=== PATIENT | male | born 1955 | race Caucasian/White ===

== ENCOUNTER 2016-11-15 16:52 | Emergency (ER) | payer MEDICARE, BC ==
[2016-11-15 17:57] VITALS: BP 162/82
[2016-11-15] MEDS ORDERED: Sodium Chloride 0.9% 10 ML Syringe FLUSH PRN (18:05)
[2016-11-15] MEDS ORDERED: Vancomycin 1.5 GM in Sodium Chloride 0.9% 500 ML IV ONE (18:06)
[2016-11-15 18:42] LABS: CHLORIDE,CL 101 mmol/L (101-111); SODIUM,NA 137 mmol/L (135-145)
[2016-11-15] MEDS ORDERED: oxyCODONE 5 MG Tab PO ONE (19:12)
--- NOTE | 2016-11-17 16:15 | EDM.PDOC ---
Scribed by Shantel Rodriguez 11/15/16 1900 for Andrew Smith MD <Mike Wright - Last Filed: 11/15/16 20:16> ED HPI Trauma - General Chief Complaint: Lower Extremity Injury/Pain Stated Complaint: DIABETIC A CUT IN HIS FINGER [id number] Time Seen by Provider: 11/15/16 17:56 - History of Present Illness Allergies/ADRs: Allergies No Known Allergies Allergy (Verified 03/31/15 19:03) Home Medications: Ambulatory Orders Aspirin [[place] Aspirin] 81 mg PO DAILY 03/31/15 [Confirmed 11/16/16] Diazepam [Valium] 5 mg PO Q6HR PRN 03/31/15 [Confirmed 11/16/16] Gabapentin [Neurontin] 300 mg PO Q6HR 03/31/15 [Confirmed 11/16/16] Hydrocodone/Acetaminophen [Hydrocodon-Acetaminophen 5-325] 2 each PO Q4HR [Confirmed 11/16/16] Insulin Aspart [Novolog] 25 unit SQ ACBREAKFAST 03/31/15 [Confirmed 11/16/16] Magnesium 250 mg PO BID 03/31/15 [Confirmed 11/16/16] Metoprolol Succinate [Toprol XL] 6.5 mg PO BID 03/31/15 [Confirmed 11/16/16] Morphine Sulfate [Morphine Sulfate ER] 15 mg PO BID 03/31/15 [Confirmed 11/16/16 ] Multivitamin [Multivitamins] 1 each PO DAILY 03/31/15 [Confirmed 11/16/16] Mycophenolate Mofetil [Cellcept] 250 mg PO BID 03/31/15 [Confirmed 11/16/16] Nph, Human Insulin Isophane [HumuLIN N] 30 unit SUBCUT ACDINNER 03/31/15 [ Confirmed 11/16/16] Nph, Human Insulin Isophane [HumuLIN N] 40 unit SUBCUT ACBREAKFAST 03/31/15 [ Confirmed 11/16/16] Omeprazole [Prilosec] 20 mg PO DAILY 03/31/15 [Confirmed 11/16/16] Sertraline HCl 25 mg PO DAILY 03/31/15 [Confirmed 11/16/16] Simvastatin [Zocor] 10 mg PO DAILY 03/31/15 [Confirmed 11/16/16] Tacrolimus [Prograf] 0.5 mg PO QPM 03/31/15 [Confirmed 11/16/16] Tacrolimus [Prograf] 1 mg PO QAM 03/31/15 [Confirmed 11/16/16] oxyCODONE HCl/Acetaminophen [oxyCODONE-Acetaminophen 5-325] 2 tab PO Q4HR [Confirmed 11/16/16] predniSONE [Prednisone] 5 mg PO DAILY 03/31/15 [Confirmed 11/16/16] Course - Vital Signs Last Recorded V/S: Last Vital Signs Temp 36.4 C 11/15/16 17:56 Pulse 71 11/15/16 17:56 Resp 16 11/15/16 17:56 BP 162/82 H 11/15/16 17:56 Pulse Ox 96 11/15/16 17:56 - Orders/Labs/Meds Labs: Laboratory Tests 11/15/16 11/15/16 11/15/16 Range/Units 18:10 18:10 18:10 WBC 7.2 (5.0-10.0) 10^3/uL RBC 5.08 (4.6-6.2) 10^6/uL Hgb 14.4 (14.0-18.0) g/dL Hct 43.9 (40.0-54.0) % MCV 86.4 (80-100) fL MCH 28.3 (27.0-34.0) pg MCHC 32.8 L (33.0-35.0) g/dL Plt Count 206 (150-450) 10^3/uL Neut % (Auto) 73.5 (42.2-75.2) % Lymph % (Auto) 11.9 L (20.5-50.1) % [place] % (Auto) 13.0 H (2-8) % Eos % (Auto) 1.5 (1.0-3.0) % Baso % (Auto) 0.1 (0.0-1.0) % Sodium 137 (135-145) mmol/L Potassium 4.0 (3.6-5.0) mmol/L Chloride 101 (101-111) mmol/L Carbon Dioxide 28.0 (21.0-31.0) mmol/L Anion Gap 12.0 BUN 19 H (7-18) mg/dL Creatinine 1.2 (0.6-1.3) mg/dL Est Cr Clr Drug Dosing 70.59 mL/min Estimated GFR (MDRD) > 60 BUN/Creatinine Ratio 15.83 Glucose 198 H (74-105) mg/dL Lactic Acid 2.3 H (0.5-2.2) mmol/L Calcium 9.0 (8.4-10.2) mg/dl Total Bilirubin 0.4 (0.2-1.0) mg/dL AST 23 (10-42) IU/L ALT 18 (10-60) IU/L Alkaline Phosphatase 60 (42-121) IU/L Total Protein 7.3 (6.7-8.2) g/dl Albumin 3.7 (3.2-5.5) g/dl Globulin 3.6 Albumin/Globulin Ratio 1.03 Meds: Medications Discontinued Medications Generic Name Dose Route Start Last Admin Trade Name Freq PRN Reason Stop Dose Admin Vancomycin HCl 1.5 gm/ Sodium 500 mls @ 334 mls/hr 11/15/16 18:06 11/15/16 18 :56 Chloride IV 11/15/16 19:35 334 mls/hr ONETIME ONE Administration Oxycodone HCl 5 mg 11/15/16 19:12 11/15/16 19:25 Oxycodone PO 11/15/16 19:13 5 mg ONETIME ONE Administration Sodium Chloride 10 ml 11/15/16 18:05 Saline Flush FLUSH ASDIRECTED PRN Keep Vein Open - Re-Assessments/Exams Free Text/Narrative Re-Assessment/Exam: 11/15/16 20:09 Discussed the examination, history, lab and x-ray results with Dr. Partida ( Podiatry with [facility]). Dr. Partida advised to have the patient remain non-weight bearing on the right foot. Return for a follow-up visit in the ED tomorrow with a possible second dose of Vanco. Then, the patient may be continued on oral antibiotics and follow-up with podiatry early next week. Departure - Departure Time of Disposition: 20:11 Disposition: Home, Self-Care 01 Condition: fair Clinical Impression: Cellulitis of great toe, right Instructions: Cellulitis, Adult, [id number] Referrals: PCP,None [Primary Care Provider] - Forms: ED Department Discharge Care Plan Goals: The patient was advised of the examination, x-ray and consult (with Dr. Partida ) results during the visit. The patient was placed in a protective boot for his right foot and advised to remain non-weight bearing on his right foot. The patient should return for a follow-up in the morning. If the patient looks worse , the patient should be given additional antibiotics and transferred to [place] in [place]. If the patient looks better, the patient may continue on oral antibiotics and follow-up with podiatry early next week. <Andrew Smith - Last Filed: 11/17/16 16:15> ED HPI Trauma - General Source: Reports: Patient, RN, RN notes reviewed History Limitations: Reports: No limitations - History of Present Illness INITIAL COMMENTS - FREE TEXT/NARRATIVE: Complaining of onset of right 1st toe becoming red yesterday with a sore on the very end. Today the toe has mild swelling with redness and some purplish color. Admits to small amount of drainage. Patient does not have pain, but has severe peripheral neuropathy. Patient also developed a cough yesterday and temperature of 100.2F last night. Symptom Onset Date: 11/14/16 Severity: severe Pain/Injury Location: Reports: lower extremity, right Past Medical History HEENT History: Reports: Impaired vision Cardiovascular History: Reports: CAD Genitourinary History: Reports: Chronic renal insuffiency, Renal disease Other Genitourinary History: kidney transplant Musculoskeletal History: Reports: Amputation, Arthritis, Osteoarthritis, Other ( see below) Other Musculoskeletal History: amputation of several digits Neurological History: Reports: Neuropathy, peripheral Endocrine/Metabolic History: Reports: Diabetes, type II, Hyperparathyroidism, IDDM, Obesity/BMI 30+ Other Endocrine/Metabolic History: kidney transplant 5 years ago. - Past Surgical History Cardiovascular Surgical History: Reports: Coronary artery bypass GI Surgical History: Reports: Cholecystectomy, Hernia repair/other Other Male Surgeries/Procedures: kidney transplant Endocrine Surgical History: Reports: Parathyroidectomy Other Neurological Surgeries/Procedures: known nerve impingement Other Musculoskeletal Surgeries/Procedures:: back surgery with hernirated disks Social & Family History - Family History Family Medical History: Noncontributory - Tobacco Use Smoking Status *Q: Never Smoker Second Hand Smoke Exposure: No - Caffeine Use Caffeine Use: Reports: Coffee, Soda, Tea - Alcohol Use Days Per Week of Alcohol Use: 0 - Recreational Drug Use Recreational Drug Use: No - Living Situation & Occupation Living situation: Reports: , with spouse Occupation: disabled Review of Systems - Review of Systems Review Of Systems: ROS reveals no pertinent complaints other than HPI. Trauma Exam - Physical Exam Exam: See Below Exam Limited By: No limitations General Appearance: Reports: obese, other (chronically ill appaering) Head: Reports: atraumatic, normocephalic Eyes: bilateral eye: normal inspection Ears: Reports: normal external exam, normal canal, hearing grossly normal, normal TMs Nose: Reports: normal inspection, normal mucousa, no blood Throat/Mouth: Reports: Normal inspection, Normal lips, Normal teeth, Normal gums , Normal oropharynx, Normal voice, No airway compromise Neck: Reports: non-tender, full range of motion, normal alignment, normal inspection Respiratory Exam: Reports: other (decreased sounds bilateral bases. Faint bibasilar rales. ) Cardiovascular: Reports: normal peripheral pulses, regular rate, rhythm, no edema, no gallop, no JVD, no murmur, no rub Back: Reports: full range of motion, normal inspection, non-tender Extremities: Reports: other (right 1st toe with 1cm unstageable ulcer with surrounding erythema to distal medial forefoot, no drainage. ) Neurologic: Reports: other (chronic/stable bilateral lower extremity neuropathy. ) Course - Orders/Labs/Meds Labs: Laboratory Tests 11/15/16 11/15/16 11/15/16 Range/Units 18:10 18:10 18:10 WBC 7.2 (5.0-10.0) 10^3/uL RBC 5.08 (4.6-6.2) 10^6/uL Hgb 14.4 (14.0-18.0) g/dL Hct 43.9 (40.0-54.0) % MCV 86.4 (80-100) fL MCH 28.3 (27.0-34.0) pg MCHC 32.8 L (33.0-35.0) g/dL Plt Count 206 (150-450) 10^3/uL Neut % (Auto) 73.5 (42.2-75.2) % Lymph % (Auto) 11.9 L (20.5-50.1) % [place] % (Auto) 13.0 H (2-8) % Eos % (Auto) 1.5 (1.0-3.0) % Baso % (Auto) 0.1 (0.0-1.0) % Sodium 137 (135-145) mmol/L Potassium 4.0 (3.6-5.0) mmol/L Chloride 101 (101-111) mmol/L Carbon Dioxide 28.0 (21.0-31.0) mmol/L Anion Gap 12.0 BUN 19 H (7-18) mg/dL Creatinine 1.2 (0.6-1.3) mg/dL Est Cr Clr Drug Dosing 70.59 mL/min Estimated GFR (MDRD) > 60 BUN/Creatinine Ratio 15.83 Glucose 198 H (74-105) mg/dL Lactic Acid 2.3 H (0.5-2.2) mmol/L Calcium 9.0 (8.4-10.2) mg/dl Total Bilirubin 0.4 (0.2-1.0) mg/dL AST 23 (10-42) IU/L ALT 18 (10-60) IU/L Alkaline Phosphatase 60 (42-121) IU/L Total Protein 7.3 (6.7-8.2) g/dl Albumin 3.7 (3.2-5.5) g/dl Globulin 3.6 Albumin/Globulin Ratio 1.03 - Radiology Interpretation Free Text/Narrative:: Chset x-ray: no acute cardiopulmonary process. No incidental/non-acute findings are described above per rad report. I have read and agree with the documentation that has been completed regarding this visit. By signing this record, I attest that the documentation was completed in my physical presence and is an accurate record of the encounter.
== END 2016-11-15 20:30 | disposition home or self-care (01) ==
LOC: DL.ED 16:52
DX: L03.031 Cellulitis of right toe (principal); I25.810 Atherosclerosis of coronary artery bypass graft(s) without angina pectoris; E11.621 Type 2 diabetes mellitus with foot ulcer; L97.519 Non-pressure chronic ulcer of other part of right foot with unspecified severity; M19.90 Unspecified osteoarthritis, unspecified site; E66.9 Obesity, unspecified; Z90.49 Acquired absence of other specified parts of digestive tract
CPT/HCPCS: 36415; 71020; 80053; 83605; 85025; 87040; 99284; A9270; J3370; J7040

== ENCOUNTER 2016-11-16 08:42 | Emergency (ER) | payer MEDICARE, BC ==
[2016-11-16] MEDS ORDERED: Bacitracin Oint 1 GM U/D Packet TOP ONE (08:56)
--- NOTE | 2016-11-16 08:56 | EDM.PDOC ---
ED HPI Skin/Rash - General Chief Complaint: Wound Recheck Stated Complaint: RT BIG TOE Time Seen by Provider: 11/16/16 08:53 Source: Reports: Patient, RN History Limitations: Reports: No limitations - History of Present Illness INITIAL COMMENTS - FREE TEXT/NARRATIVE: Pt from [facility] for the weekend presents for recheck of his Rt 1st toe ulcer and cellulitis. Pt states the redness and pain have improved some since the dose of Vancomycin 1.5g IV yesterday. Denies fever, chills, or any new symptoms. 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 medication(s) - Related Data Allergies Allergy/AdvReac Type Severity Reaction Status Date / Time No Known Allergies Allergy Verified 03/31/15 19:03 Home Meds: Ambulatory Orders Medication Instructions Recorded Confirmed Aspirin [[place] Aspirin] 81 mg PO DAILY 03/31/15 11/16/16 Diazepam [Valium] 5 mg PO Q6HR PRN 03/31/15 11/16/16 Gabapentin [Neurontin] 300 mg PO Q6HR 03/31/15 11/16/16 Hydrocodone/Acetaminophen 2 each PO Q4HR 03/31/15 11/16/16 [Hydrocodon-Acetaminophen 5-325] Insulin Aspart [Novolog] 25 unit SQ ACBREAKFAST 03/31/15 11/16/16 Magnesium 250 mg PO BID 03/31/15 11/16/16 Metoprolol Succinate [Toprol XL] 6.5 mg PO BID 03/31/15 11/16/16 Morphine Sulfate [Morphine Sulfate 15 mg PO BID 03/31/15 11/16/16 ER] Multivitamin [Multivitamins] 1 each PO DAILY 03/31/15 11/16/16 Mycophenolate Mofetil [Cellcept] 250 mg PO BID 03/31/15 11/16/16 Nph, Human Insulin Isophane 30 unit SUBCUT ACDINNER 03/31/15 11/16/16 [HumuLIN N] Nph, Human Insulin Isophane 40 unit SUBCUT ACBREAKFAST 03/31/15 11/16/16 [HumuLIN N] Omeprazole [Prilosec] 20 mg PO DAILY 03/31/15 11/16/16 Sertraline HCl 25 mg PO DAILY 03/31/15 11/16/16 Simvastatin [Zocor] 10 mg PO DAILY 03/31/15 11/16/16 Tacrolimus [Prograf] 0.5 mg PO QPM 03/31/15 11/16/16 Tacrolimus [Prograf] 1 mg PO QAM 03/31/15 11/16/16 oxyCODONE HCl/Acetaminophen 2 tab PO Q4HR 03/31/15 11/16/16 [oxyCODONE-Acetaminophen 5-325] predniSONE [Prednisone] 5 mg PO DAILY 03/31/15 11/16/16 Past Medical History HEENT History: Reports: Impaired vision Cardiovascular History: Reports: CAD Genitourinary History: Reports: Chronic renal insuffiency, Renal disease Other Genitourinary History: kidney transplant Musculoskeletal History: Reports: Amputation, Arthritis, Osteoarthritis, Other ( see below) Other Musculoskeletal History: amputation of several digits Neurological History: Reports: Neuropathy, peripheral Endocrine/Metabolic History: Reports: Diabetes, type II, Hyperparathyroidism, IDDM, Obesity/BMI 30+ Other Endocrine/Metabolic History: kidney transplant 5 years ago. - Past Surgical History Cardiovascular Surgical History: Reports: Coronary artery bypass GI Surgical History: Reports: Cholecystectomy, Hernia repair/other Other Male Surgeries/Procedures: kidney transplant Endocrine Surgical History: Reports: Parathyroidectomy Other Neurological Surgeries/Procedures: known nerve impingement Other Musculoskeletal Surgeries/Procedures:: back surgery with hernirated disks Social & Family History - Family History Family Medical History: Noncontributory - Tobacco Use Smoking Status *Q: Never Smoker Second Hand Smoke Exposure: No - Caffeine Use Caffeine Use: Reports: Coffee, Soda, Tea - Alcohol Use Days Per Week of Alcohol Use: 0 - Recreational Drug Use Recreational Drug Use: No - Living Situation & Occupation Living situation: Reports: , with spouse Occupation: disabled ED ROS GENERAL - Review of Systems Review Of Systems: ROS reveals no pertinent complaints other than HPI. ED EXAM, SKIN/RASH Exam: See Below Exam Limited By: No limitations General Appearance: alert, no apparent distress, obese, other (chronically appearing) Throat/Mouth: Normal voice Head: atraumatic, normocephalic Neck: normal inspection Respiratory/Chest: no respiratory distress, lungs clear, normal breath sounds, no accessory muscle use, chest non-tender Cardiovascular: regular rate, rhythm Extremities: other (Rt first toe with distal unstagable ulcer unchanged, erythema is decreased, toe is less tender than it was yesterday) Neurological: alert, oriented Psychiatric: normal mood Course - Vital Signs Last Recorded V/S: Last Vital Signs Temp 36.0 C 11/16/16 08:59 Pulse 63 11/16/16 08:59 Resp 18 11/16/16 08:59 BP 133/90 11/16/16 08:59 Pulse Ox 96 11/16/16 08:59 - Orders/Labs/Meds Orders: Active Orders 24 hr Category Date Time Status Peripheral IV Care [RC] . DIRECTED Care 11/16/16 08:57 Active Peripheral IV Insertion Adult [OM.PC] Stat Oth 11/16/16 08:57 Ordered Labs: Laboratory Tests 11/16/16 11/16/16 Range/Units 09:04 09:04 WBC 5.1 (5.0-10.0) 10^3/uL RBC 4.88 (4.6-6.2) 10^6/uL Hgb 14.1 (14.0-18.0) g/dL Hct 42.5 (40.0-54.0) % MCV 87.1 (80-100) fL MCH 28.9 (27.0-34.0) pg MCHC 33.2 (33.0-35.0) g/dL Plt Count 206 (150-450) 10^3/uL Neut % (Auto) 65.9 (42.2-75.2) % Lymph % (Auto) 16.2 L (20.5-50.1) % [place] % (Auto) 14.8 H (2-8) % Eos % (Auto) 2.7 (1.0-3.0) % Baso % (Auto) 0.4 (0.0-1.0) % Sodium 136 (135-145) mmol/L Potassium 3.8 (3.6-5.0) mmol/L Chloride 102 (101-111) mmol/L Carbon Dioxide 26.0 (21.0-31.0) mmol/L Anion Gap 11.8 BUN 17 (7-18) mg/dL Creatinine 1.1 (0.6-1.3) mg/dL Est Cr Clr Drug Dosing 76.70 mL/min Estimated GFR (MDRD) > 60 Glucose 263 H (74-105) mg/dL Calcium 8.4 (8.4-10.2) mg/dl Meds: Medications Discontinued Medications Generic Name Dose Route Start Last Admin Trade Name Apple PRN Reason Stop Dose Admin Hydrocodone Bitart/Acetaminophen 1 tab 11/16/16 08:58 11/16/16 09:21 [place] 325-10 Mg PO 11/16/16 08:59 1 tab ONETIME ONE Administration Bacitracin 1 dose 11/16/16 08:56 11/16/16 09:22 Bacitracin Oint 1 Gm TOP 11/16/16 08:57 1 dose ONETIME ONE Administration Vancomycin HCl 1.5 gm/ Sodium 500 mls @ 334 mls/hr 11/16/16 08:59 11/16/16 09 :22 Chloride IV 11/16/16 10:28 334 mls/hr ONETIME ONE Administration Sodium Chloride 10 ml 11/16/16 08:57 11/16/16 09:22 Saline Flush FLUSH 10 ml ASDIRECTED PRN Administration Keep Vein Open Departure - Departure Time of Disposition: 10:36 Disposition: Home, Self-Care 01 Condition: fair Clinical Impression: Cellulitis of great toe, right Instructions: Wound Infection, [id number], Cellulitis, Adult, [id number]du[place] Referrals: PCP,Not In Area [Primary Care Provider] - Forms: ED Department Discharge Additional Instructions: Rx: Clindamycin 300mg Rx: Cipro 500mg Take Coricidin HBP Cough/Cold, follow directions on package. 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 - My Orders Last 24 Hours: My Active Orders 11/16/16 08:57 Peripheral IV Care [RC] . DIRECTED Peripheral IV Insertion Adult [OM.PC] Stat - Assessment/Plan Last 24 Hours: My Active Orders 11/16/16 08:57 Peripheral IV Care [RC] . DIRECTED Peripheral IV Insertion Adult [OM.PC] Stat
[2016-11-16] MEDS ORDERED: Sodium Chloride 0.9% 10 ML Syringe FLUSH PRN (08:57)
[2016-11-16] MEDS ORDERED: Acetaminophen/HYDROcodone 325-10 MG Tab PO ONE (08:58)
[2016-11-16] MEDS ORDERED: Vancomycin 1.5 GM in Sodium Chloride 0.9% 500 ML IV ONE (08:59)
[2016-11-16 09:07] VITALS: BP 133/90
[2016-11-16 09:33] LABS: CHLORIDE,CL 102 mmol/L (101-111); SODIUM,NA 136 mmol/L (135-145)
== END 2016-11-16 11:12 | disposition home or self-care (01) ==
LOC: DL.ED 08:42
DX: L03.031 Cellulitis of right toe (principal); I25.810 Atherosclerosis of coronary artery bypass graft(s) without angina pectoris; E11.22 Type 2 diabetes mellitus with diabetic chronic kidney disease; N18.9 Chronic kidney disease, unspecified; E11.622 Type 2 diabetes mellitus with other skin ulcer; L97.519 Non-pressure chronic ulcer of other part of right foot with unspecified severity; Z94.0 Kidney transplant status; M19.90 Unspecified osteoarthritis, unspecified site; E66.9 Obesity, unspecified; Z90.49 Acquired absence of other specified parts of digestive tract; Z79.82 Long term (current) use of aspirin; Z79.899 Other long term (current) drug therapy
CPT/HCPCS: 36415; 80048; 85025; 96365; 96366; 99284; A9270; J3370; J7040; J7050

== ENCOUNTER 2016-12-21 18:34 | Emergency (ER) | payer MEDICARE, BC ==
[2016-12-21 19:02] VITALS: BP 163/91
[2016-12-21] MEDS ORDERED: HYDROmorphone 1 MG/ML Syringe IVPUSH ONE (19:06)
--- NOTE | 2016-12-21 19:12 | EDM.PDOC ---
ED HPI GENERAL MEDICAL PROBLEM - General Chief Complaint: Lower Extremity Injury/Pain Stated Complaint: SORE ON FOOT/PAIN RADIATING DOWN LEG Time Seen by Provider: 12/21/16 18:57 Source of Information: Reports: Patient History Limitations: Reports: No Limitations - History of Present Illness INITIAL COMMENTS - FREE TEXT/NARRATIVE: This 61 yo male patient reports to the ED with swelling of his right foot, an ulcer on his right great toe and shooting pain from his lower back to his foot. The patient reports he has had numerous back surgeries. The patient has been working with podiatry over the past couple of weeks for his toe. The patient is a diabetic and has had a kidney transplant in the past. 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: Other Medication(s) Right Lower Leg Pain Score (Numeric/FACES): 8 - Related Data Allergies Allergy/AdvReac Type Severity Reaction Status Date / Time No Known Allergies Allergy Verified 03/31/15 19:03 Home Meds: Home Meds Aspirin [[place] Aspirin] 81 mg PO DAILY 03/31/15 [History] Diazepam [Valium] 5 mg PO Q6HR PRN 03/31/15 [History] Gabapentin [Neurontin] 300 mg PO Q6HR 03/31/15 [History] Hydrocodone/Acetaminophen [Hydrocodon-Acetaminophen 5-325] 2 each PO Q4HR [History] Insulin Aspart [Novolog] 25 unit SQ ACBREAKFAST 03/31/15 [History] Magnesium 250 mg PO BID 03/31/15 [History] Metoprolol Succinate [Toprol XL] 6.5 mg PO BID 03/31/15 [History] Morphine Sulfate [Morphine Sulfate ER] 15 mg PO BID 03/31/15 [History] Multivitamin [Multivitamins] 1 each PO DAILY 03/31/15 [History] Mycophenolate Mofetil [Cellcept] 250 mg PO BID 03/31/15 [History] Nph, Human Insulin Isophane [HumuLIN N] 30 unit SUBCUT ACDINNER 03/31/15 [ History] Nph, Human Insulin Isophane [HumuLIN N] 40 unit SUBCUT ACBREAKFAST 03/31/15 [ History] Omeprazole [Prilosec] 20 mg PO DAILY 03/31/15 [History] Sertraline HCl 25 mg PO DAILY 03/31/15 [History] Simvastatin [Zocor] 10 mg PO DAILY 03/31/15 [History] Tacrolimus [Prograf] 0.5 mg PO QPM 03/31/15 [History] Tacrolimus [Prograf] 1 mg PO QAM 03/31/15 [History] oxyCODONE HCl/Acetaminophen [oxyCODONE-Acetaminophen 5-325] 2 tab PO Q4HR [History] predniSONE [Prednisone] 5 mg PO DAILY 03/31/15 [History] Cephalexin 500 mg PO BID 12/21/16 [History] Past Medical History HEENT History: Reports: Impaired Vision Cardiovascular History: Reports: CAD Genitourinary History: Reports: Chronic Renal Insuffiency, Renal Disease Other Genitourinary History: kidney transplant Musculoskeletal History: Reports: Amputation, Arthritis, Osteoarthritis, Other ( See Below) Other Musculoskeletal History: amputation of several digits Neurological History: Reports: Neuropathy, Peripheral Endocrine/Metabolic History: Reports: Diabetes, Type II, Hyperparathyroidism, IDDM, Obesity/BMI 30+ Other Endocrine/Metabolic History: kidney transplant 5 years ago. - Past Surgical History Cardiovascular Surgical History: Reports: Coronary Artery Bypass GI Surgical History: Reports: Cholecystectomy, Hernia Repair/Other Male Surgical History: Reports: Other (See Below) Other Male Surgeries/Procedures: kidney transplan, hx of dialysis prior Social & Family History - Family History Family Medical History: Noncontributory - Tobacco Use Smoking Status *Q: Never Smoker Second Hand Smoke Exposure: No - Caffeine Use Caffeine Use: Reports: Coffee, Soda, Tea - Alcohol Use Days Per Week of Alcohol Use: 0 - Recreational Drug Use Recreational Drug Use: No - Living Situation & Occupation Living situation: Reports: , with Spouse Occupation: Disabled Review of Systems - Review of Systems Review Of Systems: ROS reveals no pertinent complaints other than HPI. ED EXAM, GENERAL - Physical Exam Exam: See Below Exam Limited By: No Limitations General Appearance: Alert, WD/WN, Moderate Distress Eye Exam: Bilateral Eye: EOMI, Normal Inspection, PERRL Ears: Normal External Exam, Normal Canal, Hearing Grossly Normal, Normal TMs Nose: Normal Inspection, Normal Mucosa, No Blood Throat/Mouth: Normal Inspection, Normal Lips, Normal Teeth, Normal Gums, Normal Oropharynx, Normal Voice, No Airway Compromise Head: Atraumatic, Normocephalic Neck: Normal Inspection, Supple, Non-Tender, Full Range of Motion Respiratory/Chest: No Respiratory Distress, Lungs Clear, Normal Breath Sounds, No Accessory Muscle Use, Chest Non-Tender Cardiovascular: Normal Peripheral Pulses, Regular Rate, Rhythm, No Edema, No Gallop, No JVD, No Murmur, No Rub GI/Abdominal: Normal Bowel Sounds, Soft, Non-Tender, No Organomegaly, No Distention, No Abnormal Bruit, No Mass, Other (obese) (Male) Exam: Deferred Rectal (Males) Exam: Deferred Back Exam: Decreased Range of Motion (previous lower back surgeries) Extremities: Pedal Edema (right), Leg Pain (radiating pain down right leg) Neurological: Alert, Oriented, CN II-XII Intact, Normal Cognition, Normal Gait, Normal Reflexes, No Motor/Sensory Deficits Psychiatric: Normal Affect, Depressed Mood Skin Exam: Warm, Dry, Intact, Normal Color, No Rash Lymphatic: No Adenopathy Course - Vital Signs Last Recorded V/S: Last Vital Signs Temp 36.6 C 12/21/16 18:40 Pulse 76 12/21/16 18:40 Resp 18 12/21/16 18:40 BP 163/91 H 12/21/16 18:40 Pulse Ox 94 L 12/21/16 18:40 - Orders/Labs/Meds Labs: Laboratory Tests 12/21/16 12/21/16 Range/Units 19:20 19:20 WBC 9.5 (5.0-10.0) 10^3/uL RBC 4.93 (4.6-6.2) 10^6/uL Hgb 13.8 L (14.0-18.0) g/dL Hct 41.8 (40.0-54.0) % MCV 84.8 (80-100) fL MCH 28.0 (27.0-34.0) pg MCHC 33.0 (33.0-35.0) g/dL Plt Count 231 (150-450) 10^3/uL Neut % (Auto) 84.4 H (42.2-75.2) % Lymph % (Auto) 7.1 L (20.5-50.1) % [place] % (Auto) 7.9 (2-8) % Eos % (Auto) 0.5 L (1.0-3.0) % Baso % (Auto) 0.1 (0.0-1.0) % Sodium 137 (135-145) mmol/L Potassium 4.2 (3.6-5.0) mmol/L Chloride 100 L (101-111) mmol/L Carbon Dioxide 27.0 (21.0-31.0) mmol/L Anion Gap 14.2 BUN 17 (7-18) mg/dL Creatinine 0.9 (0.6-1.3) mg/dL Est Cr Clr Drug Dosing TNP Estimated GFR (MDRD) > 60 BUN/Creatinine Ratio 18.88 Glucose 244 H (74-105) mg/dL Calcium 8.9 (8.4-10.2) mg/dl Total Bilirubin 0.4 (0.2-1.0) mg/dL AST 15 (10-42) IU/L ALT 14 (10-60) IU/L Alkaline Phosphatase 65 (42-121) IU/L Total Protein 7.3 (6.7-8.2) g/dl Albumin 3.4 (3.2-5.5) g/dl Globulin 3.9 Albumin/Globulin Ratio 0.87 Meds: Medications Discontinued Medications Generic Name Dose Route Start Last Admin Trade Name Blairq PRN Reason Stop Dose Admin Hydromorphone HCl 1 mg 12/21/16 19:06 12/21/16 19:32 Dilaudid IVPUSH 12/21/16 19:07 1 mg ONETIME ONE Administration Departure - Departure Time of Disposition: 20:25 Disposition: Home, Self-Care 01 Condition: fair Clinical Impression: Sciatica, right side, Edema of right lower extremity - Discharge Information Instructions: Sciatica, [id number] Forms: ED Department Discharge Care Plan Goals: The patient and spouse were advised of the examination and lab results during the visit. The patient was given a dose of IV Dilaudid while in the ED. The patient was discharged with a dose of Flexeril (10 mg) to take at bedtime. The patient should rest, ice and elevate his right foot. The patient was encouraged to avoid trauma to his foot/toe. If the patient has any additional symptoms or concerns, the patient should follow-up with his primary care facility or return to the emergency department.
[2016-12-21 19:51] LABS: CHLORIDE,CL 100 mmol/L (101-111); SODIUM,NA 137 mmol/L (135-145)
[2016-12-21] MEDS ORDERED: Cyclobenzaprine 10 MG Tab ONE (20:28)
== END 2016-12-21 20:41 | disposition home or self-care (01) ==
LOC: DL.ED 18:34
DX: M54.31 Sciatica, right side (principal); R60.0 Localized edema; N18.9 Chronic kidney disease, unspecified; I25.10 Atherosclerotic heart disease of native coronary artery without angina pectoris; E11.9 Type 2 diabetes mellitus without complications; Z79.82 Long term (current) use of aspirin; Z79.899 Other long term (current) drug therapy
CPT/HCPCS: 36415; 80053; 85025; 96374; 99283; A9270; J1170; 99284

== ENCOUNTER 2018-01-03 19:16 | Emergency (ER) | payer MEDICARE, BC ==
[2018-01-03] MEDS ORDERED: Ketorolac 30 MG/ML SDV IM ONE (19:37)
--- NOTE | 2018-01-03 19:43 | EDM.PDOC ---
ED HPI GENERAL MEDICAL PROBLEM - General Chief Complaint: Back Pain or Injury Stated Complaint: back pain [id number] Time Seen by Provider: 01/03/18 19:37 Source of Information: Reports: Patient History Limitations: Reports: No Limitations - History of Present Illness INITIAL COMMENTS - FREE TEXT/NARRATIVE: tripped fell onto right shoulder last night got back up with help, all day been having spasm pain right side of lower neck/shoulder area. gives h/o steroid injection into neck. states no problem moving shoulder or neck but feels uncomfortable hard to lay in any position. denies paraes/[aresis to arms/legs. give h/o LBP also. taking Rx for his pains. Neck Pain Score (Numeric/FACES): 9 - Related Data Allergies Allergy/AdvReac Type Severity Reaction Status Date / Time No Known Allergies Allergy Verified 03/31/15 19:03 Home Meds: Home Meds Hydrocodone/Acetaminophen [Hydrocodon-Acetaminophen 5-325] 2 each PO Q4HR [History] Insulin Aspart [Novolog] 25 unit SQ ACBREAKFAST 03/31/15 [History] Magnesium 250 mg PO BID 03/31/15 [History] Metoprolol Succinate [Toprol XL] 6.5 mg PO BID 03/31/15 [History] Multivitamin [Multivitamins] 1 each PO DAILY 03/31/15 [History] Mycophenolate Mofetil [Cellcept] 250 mg PO BID 03/31/15 [History] Nph, Human Insulin Isophane [HumuLIN N] 30 unit SUBCUT ACDINNER 03/31/15 [ History] Nph, Human Insulin Isophane [HumuLIN N] 40 unit SUBCUT ACBREAKFAST 03/31/15 [ History] Omeprazole [Prilosec] 20 mg PO DAILY 03/31/15 [History] Sertraline HCl 25 mg PO DAILY 03/31/15 [History] Simvastatin [Zocor] 10 mg PO DAILY 03/31/15 [History] Tacrolimus [Prograf] 0.5 mg PO QPM 03/31/15 [History] Tacrolimus [Prograf] 1 mg PO QAM 03/31/15 [History] predniSONE [Prednisone] 5 mg PO DAILY 03/31/15 [History] Insulin Detemir [Levemir Flextouch] 45 unit SQ BID 01/03/18 [History] Pregabalin [Lyrica] 225 mg PO TID 01/03/18 [History] Rivaroxaban [Xarelto] 10 mg PO DAILY 01/03/18 [History] Past Medical History HEENT History: Reports: Impaired Vision Cardiovascular History: Reports: CAD Genitourinary History: Reports: Chronic Renal Insuffiency, Renal Disease Other Genitourinary History: kidney transplant Musculoskeletal History: Reports: Amputation, Arthritis, Osteoarthritis, Other ( See Below) Other Musculoskeletal History: amputation of several digits Neurological History: Reports: Neuropathy, Peripheral Endocrine/Metabolic History: Reports: Diabetes, Type II, Hyperparathyroidism, IDDM, Obesity/BMI 30+ Other Endocrine/Metabolic History: kidney transplant 5 years ago. - Past Surgical History Cardiovascular Surgical History: Reports: Coronary Artery Bypass GI Surgical History: Reports: Cholecystectomy, Hernia Repair/Other Male Surgical History: Reports: Other (See Below) Other Male Surgeries/Procedures: kidney transplan, hx of dialysis prior Social & Family History - Family History Family Medical History: Noncontributory - Caffeine Use Caffeine Use: Reports: Coffee, Soda, Tea - Living Situation & Occupation Living situation: Reports: , with Spouse Occupation: Disabled ED ROS GENERAL - Review of Systems Review Of Systems: ROS reveals no pertinent complaints other than HPI. ED EXAM, UPPER BACK/NECK PAIN - Physical Exam Exam: See Below Exam Limited By: No Limitations General Appearance: Alert, WD/WN, Mild Distress, Other (discomfort) Ears Exam: Hearing Grossly Normal Throat/Mouth Exam: Normal Voice, No Airway Compromise Head Exam: Atraumatic Neck Exam: Full Range of Motion, Normal Alignment, Muscle Spasm, Other (right trapz region) Nexus Criteria: No: Posterior, Midline Cervical Tenderness, Evidence of Intoxication, Altered Level of Consciousness, Focal Neurological Deficit, Painful Distraction Injuries Cardiovascular/Respiratory: Regular Rate, Rhythm, No Respiratory Distress GI/Abdominal: Soft, Non-Tender Extremities: Other (right trapez discomfor on deep palpation, NV wnl.) Neurologic: No Motor/Sensory Deficits, Alert, Normal Mood/Affect, Oriented x 3 Psychiatric: Flat Affect Skin Exam: Normal Color, Warm/Dry Lymphatic: No Adenopathy Course - Vital Signs Last Recorded V/S: Last Vital Signs Temp 36.7 C 01/03/18 19:31 Pulse 66 01/03/18 19:31 Resp 20 01/03/18 19:31 BP 170/87 H 01/03/18 19:31 Pulse Ox 98 01/03/18 19:31 - Orders/Labs/Meds Meds: Medications Discontinued Medications Generic Name Dose Route Start Last Admin Trade Name Apple PRN Reason Stop Dose Admin Butorphanol Tartrate 2 mg 01/03/18 19:59 01/03/18 20:03 Stadol IM 01/03/18 20:00 2 mg ONETIME ONE Administration Ketorolac Tromethamine 30 mg 01/03/18 19:37 01/03/18 19:44 Toradol IM 01/03/18 19:38 30 mg ONETIME ONE Administration Promethazine HCl 25 mg 01/03/18 19:59 01/03/18 20:03 Phenergan IM 01/03/18 20:00 25 mg ONETIME ONE Administration - Re-Assessments/Exams Free Text/Narrative Re-Assessment/Exam: 01/03/18 20:34 re-exam; s/p stadol + phenergan = better Departure - Departure Time of Disposition: 20:34 Disposition: Home, Self-Care 01 Condition: Fair Clinical Impression: Trapezius muscle strain Qualifiers: Encounter type: initial encounter Laterality: right Qualified Code(s): S46.811A - Strain of other muscles, fascia and tendons at shoulder and upper arm level, right arm, initial encounter - Discharge Information Instructions: Muscle Strain, [id number] Forms: ED Department Discharge Additional Instructions: 1) try ice or heat to sore area 2) see surgeon tomorrow for neck pain injection 3) recheck if there is any change or concern 4) continue present medication
[2018-01-03] MEDS ORDERED: Promethazine 25 MG/ML SDV IM ONE (19:59)
[2018-01-03] MEDS ORDERED: Butorphanol 2 MG/ML SDV IM ONE (19:59)
[2018-01-03 21:00] VITALS: BP 156/89
== END 2018-01-03 21:04 | disposition home or self-care (01) ==
LOC: DL.ED 19:16
DX: S46.811A Strain of other muscles, fascia and tendons at shoulder and upper arm level, right arm, initial encounter (principal); E11.22 Type 2 diabetes mellitus with diabetic chronic kidney disease; N18.9 Chronic kidney disease, unspecified; E66.9 Obesity, unspecified; Z94.0 Kidney transplant status; Z79.899 Other long term (current) drug therapy; W01.0XXA Fall on same level from slipping, tripping and stumbling without subsequent striking against object, initial encounter
CPT/HCPCS: 96372; 99283; J0595; J1885; J2550

== ENCOUNTER 2018-01-14 18:36 | Emergency (ER) | payer MEDICARE, BC ==
[2018-01-14 19:02] VITALS: BP 179/98
[2018-01-14] MEDS ORDERED: Ondansetron 4 MG/2 ML SDV IV ONE (19:39)
[2018-01-14] MEDS ORDERED: HYDROmorphone 0.5 MG/0.5 ML Syringe IVPUSH ONE ×2 (19:39→21:34)
[2018-01-14] MEDS ORDERED: Sodium Chloride 0.9% 1,000 ML IV ONE (19:53)
[2018-01-14 19:59] LABS: ANION GAP 14.3; CHLORIDE,CL 101 mmol/L (101-111); SODIUM,NA 136 mmol/L (135-145)
[2018-01-14] MEDS ORDERED: Iopamidol 612 MG/ML 100 ML Bottle IVPUSH ONE (20:04)
--- NOTE | 2018-01-14 21:37 | EDM.PDOC ---
ED HPI GENERAL MEDICAL PROBLEM - General Chief Complaint: General Stated Complaint: SURGICAL HERNIA Time Seen by Provider: 01/14/18 19:46 Source of Information: Reports: Patient, Family, RN, RN Notes Reviewed History Limitations: Reports: No Limitations - History of Present Illness INITIAL COMMENTS - FREE TEXT/NARRATIVE: Pt to the ER with c/o L) sided abdominal pain which began yesterday. States the pain radiates across the abdomen. he states he has only lifted a tailgate on a golf cart recently. Rates pain 7/10 with spasms causing 10/10. He states he has multiple hernias with mesh, and has had a kidney transplant in the past. Pt denies vomiting or diarrhea, does have nausea at times. SOB with pain but denies chest pain. Denies fever or chills. Onset: Gradual Left Lower Abdomen Pain Score (Numeric/FACES): 5 - Related Data Allergies Allergy/AdvReac Type Severity Reaction Status Date / Time No Known Allergies Allergy Verified 01/14/18 19:27 Home Meds: Home Meds Hydrocodone/Acetaminophen [Hydrocodon-Acetaminophen 5-325] 2 each PO Q4HR [History] Insulin Aspart [Novolog] 25 unit SQ ACBREAKFAST 03/31/15 [History] Magnesium 250 mg PO BID 03/31/15 [History] Metoprolol Succinate [Toprol XL] 6.5 mg PO BID 03/31/15 [History] Multivitamin [Multivitamins] 1 each PO DAILY 03/31/15 [History] Mycophenolate Mofetil [Cellcept] 250 mg PO BID 03/31/15 [History] Nph, Human Insulin Isophane [HumuLIN N] 30 unit SUBCUT ACDINNER 03/31/15 [ History] Nph, Human Insulin Isophane [HumuLIN N] 40 unit SUBCUT ACBREAKFAST 03/31/15 [ History] Omeprazole [Prilosec] 20 mg PO DAILY 03/31/15 [History] Sertraline HCl 25 mg PO DAILY 03/31/15 [History] Simvastatin [Zocor] 10 mg PO DAILY 03/31/15 [History] Tacrolimus [Prograf] 0.5 mg PO QPM 03/31/15 [History] Tacrolimus [Prograf] 1 mg PO QAM 03/31/15 [History] predniSONE [Prednisone] 5 mg PO DAILY 03/31/15 [History] Insulin Detemir [Levemir Flextouch] 45 unit SQ BID 01/03/18 [History] Pregabalin [Lyrica] 225 mg PO TID 01/03/18 [History] Rivaroxaban [Xarelto] 10 mg PO DAILY 01/03/18 [History] Past Medical History HEENT History: Reports: Impaired Vision Cardiovascular History: Reports: CAD Genitourinary History: Reports: Chronic Renal Insuffiency, Renal Disease Other Genitourinary History: kidney transplant Musculoskeletal History: Reports: Amputation, Arthritis, Osteoarthritis, Other ( See Below) Other Musculoskeletal History: amputation of several digits Neurological History: Reports: Neuropathy, Peripheral Endocrine/Metabolic History: Reports: Diabetes, Type II, Hyperparathyroidism, IDDM, Obesity/BMI 30+ Other Endocrine/Metabolic History: kidney transplant 5 years ago. - Past Surgical History Cardiovascular Surgical History: Reports: Coronary Artery Bypass GI Surgical History: Reports: Cholecystectomy, Hernia Repair/Other Male Surgical History: Reports: Other (See Below) Other Male Surgeries/Procedures: kidney transplan, hx of dialysis prior Social & Family History - Family History Family Medical History: Noncontributory - Tobacco Use Smoking Status *Q: Never Smoker - Caffeine Use Caffeine Use: Reports: Coffee, Soda, Tea - Recreational Drug Use Recreational Drug Use: No - Living Situation & Occupation Living situation: Reports: , with Spouse Occupation: Disabled ED ROS GENERAL - Review of Systems Review Of Systems: ROS reveals no pertinent complaints other than HPI. ED EXAM, GENERAL - Physical Exam Exam: See Below Exam Limited By: No Limitations General Appearance: Alert, WD/WN, Moderate Distress Eye Exam: Bilateral Eye: EOMI, Normal Inspection Ears: Normal External Exam, Hearing Grossly Normal Nose: Normal Inspection Throat/Mouth: Normal Inspection, Normal Voice, No Airway Compromise Head: Atraumatic, Normocephalic Neck: Normal Inspection, Supple, Non-Tender, Full Range of Motion Respiratory/Chest: No Respiratory Distress, Lungs Clear, Normal Breath Sounds, No Accessory Muscle Use, Chest Non-Tender Cardiovascular: Normal Peripheral Pulses, Regular Rate, Rhythm, No Edema, No Gallop, No JVD, No Murmur, No Rub Peripheral Pulses: 2+: Radial (L), Radial (R) GI/Abdominal: Normal Bowel Sounds, Soft, Distended (left side of abdomen/hernia) , Tender (Male) Exam: Deferred Rectal (Males) Exam: Deferred Back Exam: Normal Inspection, Full Range of Motion Extremities: Normal Inspection, Normal Range of Motion, Non-Tender, No Pedal Edema, Normal Capillary Refill Neurological: Alert, Oriented, CN II-XII Intact, Normal Cognition, Normal Gait, Normal Reflexes, No Motor/Sensory Deficits Psychiatric: Normal Affect, Normal Mood Skin Exam: Warm, Dry, Intact, Normal Color, No Rash Lymphatic: No Adenopathy Course - Vital Signs Last Recorded V/S: Last Vital Signs Temp 98.3 F 01/14/18 19:00 Pulse 65 01/14/18 19:00 Resp 22 H 01/14/18 19:00 BP 179/98 H 01/14/18 19:00 Pulse Ox 100 01/14/18 19:00 - Orders/Labs/Meds Labs: Laboratory Tests 01/14/18 01/14/18 01/14/18 Range/Units 19:11 19:23 19:23 WBC 9.6 (5.0-10.0) 10^3/uL RBC 5.47 (4.6-6.2) 10^6/uL Hgb 14.8 (14.0-18.0) g/dL Hct 45.6 (40.0-54.0) % MCV 83.4 (80-100) fL MCH 27.1 (27.0-34.0) pg MCHC 32.5 L (33.0-35.0) g/dL Plt Count 237 (150-450) 10^3/uL Neut % (Auto) 81.1 H (42.2-75.2) % Lymph % (Auto) 7.2 L (20.5-50.1) % [place] % (Auto) 10.9 H (2-8) % Eos % (Auto) 0.6 L (1.0-3.0) % Baso % (Auto) 0.2 (0.0-1.0) % Add Manual Diff Yes Neutrophils % (Manual) 86 H (42-75) % Lymphocytes % (Manual) 4 L (20-50) % Monocytes % (Manual) 8 (2-8) % Eosinophils % (Manual) 1 (1-3) % Metamyelocytes % 1 Toxic Granulation 1+ slight Platelet Estimate Adequate Sodium 136 (135-145) mmol/L Potassium 4.3 (3.6-5.0) mmol/L Chloride 101 (101-111) mmol/L Carbon Dioxide 25.0 (21.0-31.0) mmol/L Anion Gap 14.3 BUN 14 (7-18) mg/dL Creatinine 1.0 (0.6-1.3) mg/dL Est Cr Clr Drug Dosing 83.67 mL/min Estimated GFR (MDRD) > 60 BUN/Creatinine Ratio 14.00 Glucose TNP Calcium 8.9 (8.4-10.2) mg/dl Total Bilirubin 0.4 (0.2-1.0) mg/dL AST 31 (10-42) IU/L ALT 25 (10-60) IU/L Alkaline Phosphatase 63 (42-121) IU/L Total Protein 7.4 (6.7-8.2) g/dl Albumin 3.9 (3.2-5.5) g/dl Globulin 3.5 Albumin/Globulin Ratio 1.11 Urine Color Yellow (YELLOW) Urine Appearance Clear (CLEAR) Urine pH 7.0 (5.0-9.0) Ur Specific [place] 1.020 (1.005-1.030) Urine Protein 100 H (NEGATIVE) Urine Glucose (UA) Negative (NEGATIVE) Urine Ketones Negative (NEGATIVE) Urine Occult Blood Negative (NEGATIVE) Urine Nitrite Negative (NEGATIVE) Urine Bilirubin Negative (NEGATIVE) Urine Urobilinogen 0.2 (0.2-1.0) mg/dL Ur Leukocyte Esterase Negative (NEGATIVE) Urine RBC 0-5 /HPF Urine WBC 0-5 (0-5/HPF) /HPF Ur Epithelial Cells Rare /HPF Urine Bacteria Rare (0-FEW/HPF) /HPF Meds: Medications Discontinued Medications Generic Name Dose Route Start Last Admin Trade Name Freq PRN Reason Stop Dose Admin Hydromorphone HCl 0.5 mg 01/14/18 19:39 01/14/18 19:44 Dilaudid IVPUSH 01/14/18 19:40 0.5 mg ONETIME ONE Administration Hydromorphone HCl 0.5 mg 01/14/18 21:34 01/14/18 21:38 Dilaudid IVPUSH 01/14/18 21:35 0.5 mg ONETIME ONE Administration Sodium Chloride 1,000 mls @ 999 mls/hr 01/14/18 19:53 01/14/18 20:07 Normal Saline IV 01/14/18 20:53 999 mls/hr .BOLUS ONE Administration Iopamidol 100 ml 01/14/18 20:04 01/14/18 20:28 Isovue-300 (61%) IVPUSH 01/14/18 20:05 100 ml ONETIME ONE Administration Ondansetron HCl 4 mg 01/14/18 19:39 01/14/18 19:44 Zofran IV 01/14/18 19:40 4 mg ONETIME ONE Administration - Radiology Interpretation Free Text/Narrative:: CT abdomen/pelvis with contrast: IMPRESSION: There are multiple abdominal wall hernias. No associated bowel obstruction. Thank you for allowing us to participate in the care of your patient. Dictated and Authenticated by: Atul Jules MD 01/14/2018 9:05 PM Central Time ([place] & [place]) See Rad report - Re-Assessments/Exams Free Text/Narrative Re-Assessment/Exam: 01/14/18 21:37 Thought given to prescribing dicyclomine or orphenadrine. Both excreted renally , so did not prescribe. Patient states understanding. Departure - Departure Time of Disposition: 21:35 Disposition: Home, Self-Care 01 Condition: Fair Clinical Impression: Muscle spasm - Discharge Information Instructions: Muscle Cramps and Spasms, [id number], Abdominal Pain, Adult, [id number] Forms: ED Department Discharge Additional Instructions: Drink plenty of water Follow up with your primary care facility Return to the ER if further problems
== END 2018-01-14 21:48 | disposition home or self-care (01) ==
LOC: DL.ED 18:36
DX: M62.838 Other muscle spasm (principal); K43.9 Ventral hernia without obstruction or gangrene; E11.22 Type 2 diabetes mellitus with diabetic chronic kidney disease; N18.9 Chronic kidney disease, unspecified; E21.3 Hyperparathyroidism, unspecified; E11.40 Type 2 diabetes mellitus with diabetic neuropathy, unspecified; Z79.4 Long term (current) use of insulin; Z79.899 Other long term (current) drug therapy; X50.0XXA Overexertion from strenuous movement or load, initial encounter
CPT/HCPCS: 36415; 74177; 80053; 81001; 85025; 96361; 96374; 96375; 96376; 99284; J1170; J2405; J7030; Q9967

== ENCOUNTER 2018-01-26 20:50 | Emergency (ER) | payer MEDICARE, BC ==
[2018-01-26] MEDS ORDERED: fentaNYL 100 MCG/2 ML SDV IV ONE (20:51)
[2018-01-26 21:02] VITALS: BP 156/70
[2018-01-26] MEDS ORDERED: HYDROmorphone 0.5 MG/0.5 ML Syringe ONE (21:30)
[2018-01-26] MEDS ORDERED: Ondansetron 4 MG Tab.DIS ONE (21:30)
[2018-01-26] MEDS ORDERED: HYDROmorphone 0.5 MG/0.5 ML Syringe IVPUSH ONE (22:40)
[2018-01-26] MEDS ORDERED: fentaNYL 100 MCG/2 ML SDV ONE (23:25)
[2018-01-26 23:48] LABS: ANION GAP 10.9; CHLORIDE,CL 101 mmol/L (101-111); SODIUM,NA 138 mmol/L (135-145)
== END 2018-01-26 23:45 ==
LOC: DL.ED 20:50
DX: K46.9 Unspecified abdominal hernia without obstruction or gangrene (principal); I10 Essential (primary) hypertension; E11.9 Type 2 diabetes mellitus without complications
CPT/HCPCS: 36415; 80053; 82150; 82962; 83690; 85025; 96372; 96374; 99283; 99284; A9270; J1170; J3010

== ENCOUNTER 2020-01-15 16:51 | Emergency (ER) | payer MEDICARE, BC ==
[2020-01-15 17:23] VITALS: BP 155/80; PULSE 70
[2020-01-15] MEDS ORDERED: HYDROmorphone 1 MG/ML Syringe IM ONE (17:59)
--- NOTE | 2020-01-15 18:18 | EDM.PDOC ---
"Scribed by Shantel Rodriguez 01/15/20 [id number] for Cliff Smith MD ED HPI GENERAL MEDICAL PROBLEM - General Chief Complaint: Back Pain or Injury Stated Complaint: BACK ISSUE Time Seen by Provider: 01/15/20 17:49 Source of Information: Reports: Patient, RN, RN Notes Reviewed History Limitations: Reports: No Limitations - History of Present Illness INITIAL COMMENTS - FREE TEXT/NARRATIVE: Patient presents to ED by POV stating that he has a history of 4 back surgeries. He slipped and fell this AM. No loss of consciousness. He landed on his knee, did not go down all the way. Patient took 2 hydrocodone at 1400 hours, feels like lightening bolts down the right leg. He states feels like Charley horse to the right calf. He is hurting from the buttock, down the ham string. He states was tested 3 weeks ago for a negative COVID. He has been in pain clinics before, now just regular doctor prescribes the hydrocodone, rates his pain 01/19, Onset: Today Duration: Getting Worse Location: Reports: Back Quality: Reports: Ache Severity: Severe Improves with: Reports: None Worsens with: Reports: None Associated Symptoms: Reports: No Other Symptoms Treatments HAND TRIMMER: Reports: Other (see below) (hydrocodone) Buttock Pain Score (Numeric/FACES): 7 - Related Data Allergies Allergy/AdvReac Type Severity Reaction Status Date / Time No Known Allergies Allergy Verified 01/15/20 17:23 Home Meds: Home Meds Hydrocodone/Acetaminophen [Hydrocodon-Acetaminophen 5-325] 2 each PO Q4HR 03/31/15 [History] Insulin Aspart [Novolog] 25 unit SQ ACBREAKFAST 03/31/15 [History] Magnesium 250 mg PO BID 03/31/15 [History] Metoprolol Succinate [Toprol XL] 6.5 mg PO BID 03/31/15 [History] Multivitamin [Multivitamins] 1 each PO DAILY 03/31/15 [History] Nph, Human Insulin Isophane [HumuLIN N] 30 unit SUBCUT ACDINNER 03/31/15 [History] Nph, Human Insulin Isophane [HumuLIN N] 40 unit SUBCUT ACBREAKFAST 03/31/15 [History] Omeprazole [Prilosec] 20 mg PO DAILY 03/31/15 [History] Sertraline HCl 25 mg PO DAILY 03/31/15 [History] Simvastatin [Zocor] 10 mg PO DAILY 03/31/15 [History] Tacrolimus [Prograf] 0.5 mg PO QPM 03/31/15 [History] Tacrolimus [Prograf] 1 mg PO QAM 03/31/15 [History] mycophenolate mofetiL [Cellcept] 250 mg PO BID 03/31/15 [History] predniSONE [Prednisone] 5 mg PO BID 03/31/15 [History] Pregabalin [Lyrica] 225 mg PO TID 01/03/18 [History] Rivaroxaban [Xarelto] 10 mg PO DAILY 01/03/18 [History] Past Medical History HEENT History: Reports: Impaired Vision Other HEENT History: wears glasses Cardiovascular History: Reports: CAD Respiratory History: Reports: None Gastrointestinal History: Reports: GERD Genitourinary History: Reports: Chronic Renal Insuffiency, Renal Disease Other Genitourinary History: kidney transplant. hx kidney dialysis Musculoskeletal History: Reports: Amputation, Arthritis, Osteoarthritis, Other (See Below) Other Musculoskeletal History: amputation of several digits Neurological History: Reports: Neuropathy, Diabetic, Neuropathy, Peripheral Endocrine/Metabolic History: Reports: Diabetes, Type II, Hyperparathyroidism, IDDM, Obesity/BMI 30+ Other Endocrine/Metabolic History: kidney transplant 5 years ago. Hematologic History: Reports: None Immunologic History: Reports: None Oncologic (Cancer) History: Reports: None - Infectious Disease History Infectious Disease History: Reports: Chicken Pox, Measles, Mumps - Past Surgical History Head Surgeries/Procedures: Reports: None Cardiovascular Surgical History: Reports: Coronary Artery Bypass GI Surgical History: Reports: Cholecystectomy, Hernia Repair/Other Male Surgical History: Reports: Other (See Below) Other Male Surgeries/Procedures: kidney transplan, hx of dialysis prior Social & Family History - Family History Family Medical History: Noncontributory - Tobacco Use Smoking Status *Q: Never Smoker - Caffeine Use Caffeine Use: Reports: Coffee - Recreational Drug Use Recreational Drug Use: No - Living Situation & Occupation Living situation: Reports: , with Spouse Occupation: Disabled ED ROS GENERAL - Review of Systems Review Of Systems: Comprehensive ROS is negative, except as noted in HPI. ED EXAM,LOWER BACK PAIN/INJURY - Physical Exam Exam: See Below Exam Limited By: No Limitations General Appearance: Obese Nose: Normal Inspection Throat/Mouth: Normal Inspection, Normal Voice, No Airway Compromise Head: Atraumatic, Normocephalic Neck: Normal Inspection, Full Range of Motion Respiratory/Chest: No Respiratory Distress, Lungs Clear, No Accessory Muscle Use, Chest Non-Tender, Decreased Breath Sounds Cardiovascular: Regular Rate, Rhythm, No Edema GI/Abdominal: Normal Bowel Sounds, Soft, Non-Tender, No Distention, Pelvis Stable Back Exam: Decreased Range of Motion, Muscle Spasm, Paraspinal Tenderness (Lumbar), Vertebral Tenderness (Generalized lumbar). No: CVA Tenderness (L), CVA Tenderness (R) Extremities: Normal Range of Motion, Non-Tender, No Pedal Edema, Other (Chronic appearance of venous insuff. to B/L lower extremities.). No: Joint Swelling Neurological: Alert, Normal Mood/Affect, Normal Dorsiflexion, CN II-XII Intact, Normal Gait, Oriented x 3, Other (No acute motor or sensory deficits) Psychiatric: Normal Mood Skin Exam: Warm, Dry, Other (superficial abrasions to left knee) Course - Vital Signs Last Recorded V/S: Last Vital Signs Temp 97.9 F 01/15/20 17:07 Pulse 70 01/15/20 17:07 Resp 18 01/15/20 17:07 BP 155/80 H 01/15/20 17:07 Pulse Ox 96 01/15/20 17:07 - Orders/Labs/Meds Meds: Medications Discontinued Medications Generic Name Dose Route Start Last Admin Trade Name Blairq PRN Reason Stop Dose Admin Cyclobenzaprine HCl 10 mg 01/15/20 18:29 Flexeril PO 01/15/20 18:30 ONETIME ONE Dexamethasone 8 mg 01/15/20 18:29 Dexamethasone IM 01/15/20 18:30 ONETIME ONE Hydromorphone HCl 2 mg 01/15/20 17:59 01/15/20 18:08 Dilaudid IM 01/15/20 18:00 2 mg ONETIME ONE Administration - Radiology Interpretation Free Text/Narrative:: [facility] Final Radiology Report Call: [phone] assistance Online chat: [email or web address] Name: RYANN ALVARADO Age: 64Years M Date: 01/15/2020 SSN: -- : [id number] Study: CR LUMBAR SPINE 2 OR 3V Requesting Physician: CLIFF SMITH Images: 3 Addl Studies: Provided Clinical History: fall, back pain Contrast: Contrast Medium: Contrast Amount: Contrast Method: Page 1 of 2 PROCEDURE INFORMATION: Exam: XR Lumbosacral Spine, 2 or 3 Views Exam date and time: 01/15/2020 6:21 PM Age: 64 years old Clinical indication: Other: Fall; Prior surgery; Additional info: Fall, back pain TECHNIQUE: Imaging protocol: XR of the lumbosacral spine, 2 or 3 views. COMPARISON: No relevant prior studies available. FINDINGS: Vertebrae: Previous L5-S1 fusion of the posterior elements with transpedicular screws and also of the disc space with a metal robbie cage device. Previous L5 laminectomy. There are no fractures. There are no suspicious focal bone lesions. There is lower thoracic spine degenerative disc disease. Facet arthropathy of the lumbar spine bilaterally of moderate severity. Intraperitoneal space: Previous cholecystectomy. 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 Soft tissues: Unremarkable. IMPRESSION: 1. No acute fracture or dislocation. 2. Degenerative lumbar spine disease. 3. Previous L5-S1 fusion and L5 laminectomy. Thank you for allowing us to participate in the care of your patient. Dictated and Authenticated by: Andi Almendarez MD FLATEN, KEITH | Final Radiology Report CONFIDENTIALITY STATEMENT This report is intended only for use by the referring physician, and only in accordance with law. If you received this in error, call [phone]. Page 2 of 2 01/15/2020 6:38 PM Central Time ([place] & [place]) Departure - Departure Time of Disposition: 19:00 Disposition: Home, Self-Care 01 Condition: Fair Clinical Impression: Acute right lumbar radiculopathy - Discharge Information *PRESCRIPTION DRUG MONITORING PROGRAM REVIEWED*: No *COPY OF PRESCRIPTION DRUG MONITORING REPORT IN PATIENT EARL: No Instructions: Lumbosacral Radiculopathy Forms: ED Department Discharge Additional Instructions: Rx: Dexamethasone 4mg Continue current medications as prescribed. Follow up in clinic this week if pain is not improving. Sepsis Event Note (ED) - Evaluation Sepsis Screening Result: No Definite Risk - Focused Exam Vital Signs: Vital Signs Temp Pulse Resp BP Pulse Ox 01/15/20 17:07 97.9 F 70 18 155/80 H 96 I have read and agree with the documentation that has been completed regarding this visit. By signing this record, I attest that the documentation was completed in my physical presence and is an accurate record of the encounter."
[2020-01-15] MEDS ORDERED: Dexamethasone 4 MG/ML SDV IM ONE (18:29)
[2020-01-15] MEDS ORDERED: Cyclobenzaprine 10 MG Tab PO ONE (18:29)
--- NOTE | 2020-01-15 18:38 | CR ---
PROCEDURE INFORMATION: Exam: XR Lumbosacral Spine, 2 or 3 Views Exam date and time: 01/15/2020 6:21 PM Age: 64 years old Clinical indication: Other: Fall; Prior surgery; Additional info: Fall, back pain TECHNIQUE: Imaging protocol: XR of the lumbosacral spine, 2 or 3 views. COMPARISON: No relevant prior studies available. FINDINGS: Vertebrae: Previous L5-S1 fusion of the posterior elements with transpedicular screws and also of the disc space with a metal robbie cage device. Previous L5 laminectomy. There are no fractures. There are no suspicious focal bone lesions. There is lower thoracic spine degenerative disc disease. Facet arthropathy of the lumbar spine bilaterally of moderate severity. Intraperitoneal space: Previous cholecystectomy. 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 Soft tissues: Unremarkable. IMPRESSION: 1. No acute fracture or dislocation. 2. Degenerative lumbar spine disease. 3. Previous L5-S1 fusion and L5 laminectomy.
== END 2020-01-15 19:07 | disposition home or self-care (01) ==
LOC: DL.ED 16:51
DX: M54.16 Radiculopathy, lumbar region (principal); K21.9 Gastro-esophageal reflux disease without esophagitis; E66.9 Obesity, unspecified; E11.42 Type 2 diabetes mellitus with diabetic polyneuropathy; E11.22 Type 2 diabetes mellitus with diabetic chronic kidney disease; N18.9 Chronic kidney disease, unspecified; I25.10 Atherosclerotic heart disease of native coronary artery without angina pectoris; Z94.0 Kidney transplant status; Z79.4 Long term (current) use of insulin; Z79.899 Other long term (current) drug therapy
CPT/HCPCS: 72100; 96372; 99283; J1100; J1170